=== PATIENT | female | born 1950 | race Caucasian/White ===

== ENCOUNTER → 2018-04-12 | Outpatient (CLI) | payer MEDICARE, OTHER ==
[~2018-04-12] MED LIST: DIAZ-345 PO; IBUP-1773 PO; PNT40TEC PO; TOLTA4 PO
--- NOTE | 2018-04-12 21:05 | Diagnostic Imaging Report ---
INDICATION: Screening for osteoporosis. COMPARISON: There are no prior studies for for comparison. EXAMINATION: DEXA study. FINDINGS: The bone mineral density of the hips and spine was measured. The total T-score for the spine is -1.9. This indicates osteopenia. The total T-score for the left hip is -2.7 and for the right hip -2.5. The T-score for the left femoral neck is -3.2 and for the right femoral neck -3.2. These values fall within the range of osteoporosis. AP Spine L1-L4: [BMD (g/cm2): 0.976] [T-Score: -1.9] [Z-Score: 0.1] [BMD Previous: 1.001] [BMD % Change: -2.5] LT Hip Neck: [BMD (g/cm2): 0.601] [T-Score: -3.1] [Z-Score: -1.4] LT Hip Total: [BMD (g/cm2):0.66] [T-Score:-2.7] [Z-Score: -1.2] [BMD Previous: 0.754] [BMD % Change: N/A] RT Hip Neck: [BMD (g/cm2):0.597] [T-Score:-3.2] [Z-Score:-1.4] RT Hip Total: [BMD (g/cm2):0.691] [T-score:-2.5] [Z-Score:-1.0] [BMD Previous:0.771] [BMD % Change: N/A] *Indicates significant change from prior examination based on 95% confidence level. World Health Organization criteria for BMD interpretation classify patients as Normal (T-score at or above -1.0), Osteopenic (T-score between -1.0 and -2.5) or Osteoporotic (T-score at or below -2.5). LIMITATIONS AND MODIFICATION: None. FRACTURE RISK (FRAX SCORE): The ten year probability of (%): Major Osteoporotic Fracture: [16] Hip Fracture: [6.1] IMPRESSION: 1. There is osteopenia of the spine. There is also osteoporosis of both hip joints. 2. See below National Osteoporosis Foundation guidelines on when to potentially initiate pharmacologic therapy. Based on the National Osteoporosis Foundation Guidelines, pharmacologic treatment should be initiated in any of the following, unless clinical conditions suggest otherwise: * Any patient with prior fragility fracture of the hip or vertebrae. A spine fracture indicates 5X risk for subsequent spine fracture and 2X risk for subsequent hip fracture. * Osteoporosis (T-score <-2.5). * Postmenopausal women and men age 50 and older with low bone mass/osteopenia (T-score between -1.0 and -2.5) by DXA and 10-year major osteoporotic fracture greater than 20% or a 10-year probability of hip fracture greater than 3%. These fracture risks are supplied above in the FRAX score, if applicable. * Clinician judgement and/or patient preferences may indicate treatment for people with 10-year fracture probabilities above or below these levels. Dictated by: Dictated on workstation # [id number]
--- NOTE | 2018-04-12 21:24 | Diagnostic Imaging Report ---
INDICATION: Routine screening. Patient's prior mammograms are not available for comparison. 2-D and 3-D bilateral screening mammography was performed with CAD. The current study was also evaluated with a Computer Aided Detection (CAD) system. FINDINGS: Both breasts are heterogeneously dense, limiting the sensitivity of mammography. There are innumerable calcifications scattered throughout both breasts. No spiculated mass or malignant-appearing microcalcifications are seen. There are benign-appearing nodular densities in the upper-outer left breast as well as lower-outer left breast consistent with benign etiology. Axillae are unremarkable. IMPRESSION: No mammographic features suspicious for malignancy are identified. ACR BI-RADS Category 2: Benign findings. Result letter will be mailed to the patient. Note: At least 10% of breast cancer is not imaged by mammography. Dictated by: Dictated on workstation # [id number]
== END ==
LOC: RAD 10:09
PROVIDERS: ATTEND Nurse Practitioner Family
DX: Z12.31 Encounter for screening mammogram for malignant neoplasm of breast (principal); Z13.820 Encounter for screening for osteoporosis; M81.0 Age-related osteoporosis without current pathological fracture; M85.88 Other specified disorders of bone density and structure, other site; R53.83 Other fatigue
CPT/HCPCS: 77067; 77080

== ENCOUNTER → 2020-07-06 | Outpatient (CLI) | payer MEDICARE ==
--- NOTE | 2020-07-06 12:16 | Diagnostic Imaging Report ---
INDICATION: Routine screening. Comparison is made with prior mammogram from 04/12/2018. 2-D and 3-D bilateral screening mammography was performed with CAD. Both breasts are heterogeneously dense, limiting the sensitivity of mammography. There are numerous benign appearing calcifications are identified in both breasts. No new mass or malignant appearing microcalcifications are seen. Axillae are unremarkable. IMPRESSION: BI-RADS Category 2 No mammographic features suspicious for malignancy are identified. ACR BI-RADS Category 2: Benign findings. Result letter will be mailed to the patient. Note: At least 10% of breast cancer is not imaged by mammography. Dictated by: Dictated on workstation # [id number]
== END ==
LOC: RAD 10:40
PROVIDERS: ATTEND Internal Medicine
DX: Z12.31 Encounter for screening mammogram for malignant neoplasm of breast (principal)
CPT/HCPCS: 77063; 77067